=== PATIENT | female | born 1995 | race American Indian/Alaskan Native ===

== ENCOUNTER 2019-02-18 13:39 | Outpatient (CLI) | payer MEDICAID ==
[2019-02-18 14:25] VITALS: BP 116/73
== END 2019-02-18 14:41 | disposition home or self-care (01) ==
LOC: TRG 13:39
PROVIDERS: ATTEND Obstetrics & Gynecology
DX: O47.03 False labor before 37 completed weeks of gestation, third trimester (principal); Z3A.35 35 weeks gestation of pregnancy
CPT/HCPCS: 59025